=== PATIENT | female | born 1955 | race Caucasian/White ===

== ENCOUNTER 2017-08-14 10:25 | Outpatient (CLI) | payer MEDICAID ==
--- NOTE | 2017-08-14 13:03 | XRAY Report ---
TWO VIEW CHEST: 08/14/2017 CLINICAL INDICATION: Cough. COMPARISON: 06/27/2013. FINDINGS: Frontal and lateral views of the chest demonstrate a normal cardiac silhouette. The lungs are clear. No effusion or pneumothorax is present. IMPRESSION: NORMAL CHEST. TD: 08/14/2017 13:02
== END 2017-08-14 10:26 | disposition home or self-care (01) ==
LOC: DI.S 10:25
PROVIDERS: ATTEND Nurse Practitioner Family
DX: R05 Cough (principal)
CPT/HCPCS: 71046

== ENCOUNTER 2018-08-27 09:33 | Outpatient (CLI) | payer MEDICAID ==
--- NOTE | 2018-08-27 14:03 | XRAY Report ---
Reason: RIB PAIN,RIGHT SIDED,CHEST WALL PAIN Procedure Date: 08/27/2018 Accession Number: [id number] / [id number] Procedure: XR - Ribs w/PA Chest RT CPT Code: FULL RESULT: EXAM: RIGHT RIB RADIOGRAPHY EXAM DATE: 08/27/2018 10:06 AM. CLINICAL HISTORY: Patient fell 1 week ago. Anterior right chest wall pain. COMPARISON: CHEST 2 VIEW 08/14/2017 10:54 AM. TECHNIQUE: 1 view of the chest and 2 views of the ribs. FINDINGS: Bones: Normal. No fracture or bone lesion. Lungs: No focal opacities. No pneumothorax. No pleural effusions. Mediastinum: Heart and mediastinal contours are unremarkable. Other: None. IMPRESSION: No definite displaced rib fracture is detected. RADIA
== END 2018-08-27 09:34 | disposition home or self-care (01) ==
LOC: DI 09:33
PROVIDERS: ATTEND Physician Assistant Medical
DX: R07.81 Pleurodynia (principal); R07.89 Other chest pain

== ENCOUNTER 2019-01-02 10:49 | Outpatient (CLI) | payer MEDICAID ==
--- NOTE | 2019-01-03 09:35 | XRAY Report ---
Reason: PAIN IN RIGHT ANKLE JOINTS OF RIGHT FOOT Procedure Date: 01/02/2019 Accession Number: [id number] / [id number] Procedure: XRS - Ankle 3 View RT CPT Code: FULL RESULT: EXAM: RIGHT ANKLE RADIOGRAPHY EXAM DATE: 01/02/2019 10:58 AM. CLINICAL HISTORY: PAIN IN RIGHT ANKLE JOINTS OF RIGHT FOOT. COMPARISON: None. TECHNIQUE: 3 views. FINDINGS: Bones: Small plantar calcaneal spur. No fractures or bone lesions. Joints: Normal. No effusion. No subluxations. The ankle mortise is normally aligned. Soft Tissues: Normal. No soft tissue swelling. IMPRESSION: Normal ankle radiography apart from a small calcaneal spur. RADIA
== END 2019-01-02 10:50 | disposition home or self-care (01) ==
LOC: DI.S 10:49
PROVIDERS: ATTEND Physician Assistant Medical
DX: M77.31 Calcaneal spur, right foot (principal)

== ENCOUNTER 2019-01-21 11:25 | Outpatient (CLI) | payer MEDICAID ==
--- NOTE | 2019-01-21 15:48 | Mammography Report ---
Reason: SCREENING MAMMO Procedure Date: 01/21/2019 Accession Number: [id number] / [id number] Procedure: [facility]KA - Screening Mammo w/Michael CPT Code: FULL RESULT: EXAM: Screening Mammo w/Michael DATE: 01/21/2019 12:09 PM CLINICAL HISTORY: Screening TECHNIQUE: (B) - Bilateral CC and MLO views were obtained. COMPARISON: 03/18/2016, 01/06/2015 PARENCHYMAL PATTERN: (A) - The breasts demonstrate scattered fibroglandular densities bilaterally. FINDINGS: Stable long-standing focal breast asymmetry medial hemisphere left breast, middle one third, dating back to at least 2014. There are no suspicious masses, calcifications, or areas of distortion. IMPRESSION: Benign findings. BI-RADS category 2. RECOMMENDATION: (ANNUAL) - Recommend routine annual screening mammography. BI-RADS CATEGORY: (2) - Benign Findings. STANDARD QUALIFYING STATEMENTS: 1. This examination was not reviewed with the aid of Computer-Aided Detection (CAD). 2. A negative or benign imaging report should not preclude biopsy if clinically suspicious findings are present. 3. Dense breasts may obscure an underlying neoplasm. 4. This examination was reviewed with the aid of 3D breast imaging (tomosynthesis).
== END 2019-01-21 11:26 | disposition home or self-care (01) ==
LOC: DI 11:25
PROVIDERS: ATTEND Family Medicine
DX: Z12.31 Encounter for screening mammogram for malignant neoplasm of breast (principal)
CPT/HCPCS: 77063; 77067

== ENCOUNTER 2019-05-15 07:01 | Outpatient (CLI) | payer MEDICAID ==
[2019-05-15 10:11] LABS: BASOPHILS # (AUTO) 0.1 10^3/uL (0.0-0.1); BASOPHILS % (AUTO) 1.2 %; EOSINOPHILS # (AUTO) 0.2 10^3/uL (0.0-0.7); EOSINOPHILS % (AUTO) 3.4 %; HGB - HEMOGLOBIN 12.4 g/dL (12.0-16.0); LYMPHOCYTES # (AUTO) 2.3 10^3/uL (1.5-3.5); MEAN CORPUSCULAR HEMOGLOBIN 28.6 pg (27.0-31.0); MEAN CORPUSCULAR HGB CONC 31.7 g/dL (32.0-36.0); MEAN CORPUSCULAR VOLUME 90.1 fL (81.0-99.0); MEAN PLATELET VOLUME 11.3 fL (7.9-10.8); MONOCYTES # (AUTO) 0.4 10^3/uL (0.0-1.0); MONOCYTES % (AUTO) 6.2 %; NEUTROPHILS # (AUTO) 3.7 10^3/uL (1.5-6.6); NEUTROPHILS % (AUTO) 54.9 %; PLT - PLATELET COUNT 272 10^3/uL (130-450); RED BLOOD COUNT 4.34 10^6/uL (4.20-5.40); RED CELL DISTRIBUTION WIDTH 12.6 % (12.0-15.0); WHITE BLOOD COUNT 6.8 x10^3/uL (4.8-10.8)
[2019-05-15 10:22] LABS: ALBUMIN 3.7 g/dL (3.2-5.5); ALBUMIN/GLOBULIN RATIO 1.1 (1.0-2.2); BILIRUBIN,TOTAL 0.9 mg/dL (0.2-1.0); CALCIUM 8.7 mg/dL (8.5-10.3); CREATININE 0.6 mg/dL (0.4-1.0); MAGNESIUM 2.1 mg/dL (1.7-2.8); TOTAL PROTEIN 7.1 g/dL (6.7-8.2)
[2019-05-15 10:42] LABS: HB2 TOTAL 12.2 g/dL; HEMOGLOBIN A1C 0.54 g/dL; HEMOGLOBIN A1C % 6.2 % (4.6-6.2)
== END 2019-05-15 07:02 | disposition home or self-care (01) ==
LOC: LAB.S 07:01
PROVIDERS: ATTEND Physician Assistant Medical
DX: I49.9 Cardiac arrhythmia, unspecified (principal); Z13.228 Encounter for screening for other metabolic disorders; R73.01 Impaired fasting glucose; Z13.29 Encounter for screening for other suspected endocrine disorder; Z13.0 Encounter for screening for diseases of the blood and blood-forming organs and certain disorders involving the immune mechanism
CPT/HCPCS: 36415; 80053; 83036; 83735; 84443; 85025

== ENCOUNTER 2021-03-02 08:47 | Outpatient (CLI) | payer MEDICARE, MEDICAID ==
--- NOTE | 2021-03-03 09:04 | Mammography Report ---
BILATERAL DIGITAL SCREENING MAMMOGRAM 3D/2D WITH EXAGGERATED CC: 03/02/2021 CLINICAL: Family history of breast cancer. Comparison is made to exams dated: 01/21/2019 mammogram, 03/20/2016 mammogram, 01/06/2015 mammogram, a nd 09/12/2012 mammogram - [facility]. The tissue of both breasts is heterogeneously dense. This may lower the sensitivity of mammography. No significant masses, calcifications, or other findings are seen in either breast. There has been no significant interval change. IMPRESSION: NEGATIVE There is no mammographic evidence of malignancy. A 1 year screening mammogram is recommended. This exam was interpreted at Station ID: [id number]. NOTE: For mammograms, a report in lay terms will be sent to the patient. Approximately 15% of breast malignancies will not be visualized mammographically. In the management of a palpable breast mass, a negative mammogram must not discourage biopsy of a clinically suspicious lesion. Electronically Signed By: Larry neri/penrad:03/02/2021 10:07:08 ACR BI-RADS Category 1: Negative 3341F PARENCHYMAL PATTERN: (D) - The breast(s) demonstrate(s) heterogeneously dense fibroglandular ron sykes. BI-RADS CATEGORY: (1) - 1 RECOMMENDATION: (ANNUAL) - Recommend routine annual screening mammography. [id number] 1 year screening LATERALITY: (B)
== END 2021-03-02 08:48 | disposition home or self-care (01) ==
LOC: DI.S 08:47
DX: Z12.31 Encounter for screening mammogram for malignant neoplasm of breast (principal)

== ENCOUNTER 2021-07-22 09:44 | Outpatient (CLI) | payer MEDICARE, MEDICAID ==
--- NOTE | 2021-07-22 12:01 | XRAY Report ---
PROCEDURE: Cervical Spine w/Flex/Ext INDICATIONS: NUMBNESS, HAND TECHNIQUE: 7 views of the cervical spine were acquired including flexion and extension and oblique. COMPARISON: None. FINDINGS: Bones: No fractures or dislocations to the T1 level. No suspicious bony lesions. There is normal r daniel of motion between flexion and extension, with preserved normal bony alignment. Severe C5-C6 and C6-7 C7 degenerative disc changes. Mild C7-T1 degenerative disc changes. Moderate facet arthropathy n oted throughout the cervical spine. Moderate right C3-C4 and C4-C5 neural foraminal narrowing. Mild r ight C5-C6 neural foraminal narrowing. Moderate left C6-7 C7 neural foraminal narrowing. Soft tissues: Prevertebral soft tissues are normal in thickness. IMPRESSION: 1. Multilevel degenerative disc disease. 2. Multilevel facet arthropathy. 3. No fracture. No acute osseous lesion. If there is continued clinical concern for pathology, then M RI should be considered for further evaluation. Reviewed by: Chey Abdi MD, PhD on 07/22/2021 11:59 AM PDT Approved by: Chey Abdi MD, PhD on 07/22/2021 11:59 AM PDT Station ID: [id number]
== END 2021-07-22 09:45 | disposition home or self-care (01) ==
LOC: DI.S 09:44
PROVIDERS: ATTEND Registered Nurse
DX: R20.0 Anesthesia of skin (principal); M47.812 Spondylosis without myelopathy or radiculopathy, cervical region; M50.322 Other cervical disc degeneration at C5-C6 level; M48.02 Spinal stenosis, cervical region

== ENCOUNTER 2021-08-03 14:28 | Outpatient (CLI) | payer MEDICARE, MEDICAID | END 2021-08-03 14:29 | disposition short-term general hospital (02) | LOC: EMS 14:28 | DX: K62.5 Hemorrhage of anus and rectum (principal); R10.31 Right lower quadrant pain; R10.32 Left lower quadrant pain | CPT/HCPCS: A0425; A0429 ==

== ENCOUNTER 2021-08-18 10:49 | Outpatient (CLI) | payer MEDICARE, MEDICAID ==
--- NOTE | 2021-08-18 16:33 | MRI Report ---
PROCEDURE: Cervical Spine W/O INDICATIONS: ARTHROPATHY OF CERVICAL SPINE FACET, CERVICALGIA TECHNIQUE: Noncontrast sagittal T1 spin echo and T2 fast spin echo, sagittal STIR, foraminal oblique sagittal T2 fast spin echo, and axial gradient echo or T2 fast spin echo through the cervical spine. COMPARISON: None. FINDINGS: Straightening and reversal of usual cervical lordosis. No suspicious focal marrow signal abnormality or bone marrow edema. Body heights are maintained. Normal morphology and signal intensity of the cerv ical cord. There is no syrinx. Regional prevertebral and paraspinous soft tissues are within normal l imits. C2-C3: No spinal canal or neural foraminal stenosis. C3-C4: Severe neural foraminal narrowing on the right due to facet and uncovertebral hypertrophy. M ild neural foraminal narrowing on the left due to uncovertebral spurring. No spinal canal stenosis. C4-C5: Severe neural foraminal stenosis on the right and and moderate neural foraminal stenosis on t he left, due to a combination of facet and uncovertebral hypertrophy. Mild spinal canal stenosis due to posterior disc-osteophyte complex. C5-C6: Moderate spinal canal stenosis due to posterior disc-osteophyte complex and severe bilateral neural foraminal stenosis due to facet and uncovertebral hypertrophy. C6-C7: Mild spinal canal stenosis due to posterior discussed by complex. Moderate to severe bilatera l neural foraminal stenosis due to facet hypertrophy. C7-T1: No spinal canal stenosis. Moderate and bilateral neural foraminal stenosis due to facet and u ncovertebral hypertrophy. IMPRESSION: Moderate spinal canal stenosis at C5-C6. Varying degrees of neural foraminal stenosis, severe at multiple levels as detailed above. Correlate for corresponding radicular symptoms. Reviewed by: Ramu Gutierrez MD on 08/18/2021 4:32 PM PDT Approved by: Ramu Gutierrez MD on 08/18/2021 4:32 PM PDT Station ID: [id number]
== END 2021-08-18 10:50 | disposition home or self-care (01) ==
LOC: DI 10:49
PROVIDERS: ATTEND Registered Nurse
DX: M47.812 Spondylosis without myelopathy or radiculopathy, cervical region (principal); M54.2 Cervicalgia; R20.2 Paresthesia of skin; M48.02 Spinal stenosis, cervical region

== ENCOUNTER 2022-01-18 22:18 | Outpatient (CLI) | payer MEDICARE, MEDICAID | END 2022-01-18 22:19 | disposition short-term general hospital (02) | LOC: EMS 22:18 | DX: S89.92XA Unspecified injury of left lower leg, initial encounter (principal); W10.8XXA Fall (on) (from) other stairs and steps, initial encounter; Y93.01 Activity, walking, marching and hiking; Y92.89 Other specified places as the place of occurrence of the external cause; Z59.00 Homelessness unspecified | CPT/HCPCS: A0425; A0427 ==

== ENCOUNTER 2023-01-03 06:51 | Outpatient (CLI) | payer MEDICARE, MEDICAID ==
[2023-01-03 14:47] LABS: BASOPHILS # (AUTO) 0.1 10^3/uL (0.0-0.1); BASOPHILS % (AUTO) 1.3 %; EOSINOPHILS # (AUTO) 0.2 10^3/uL (0.0-0.7); EOSINOPHILS % (AUTO) 2.9 %; HCT - HEMATOCRIT 39.8 % (37.0-47.0); HGB - HEMOGLOBIN 12.5 g/dL (12.0-16.0); LYMPHOCYTES # (AUTO) 2.2 10^3/uL (1.5-3.5); LYMPHOCYTES % (AUTO) 39.1 %; MEAN CORPUSCULAR HEMOGLOBIN 29.1 pg (27.0-31.0); MEAN CORPUSCULAR HGB CONC 31.4 g/dL (32.0-36.0); MEAN CORPUSCULAR VOLUME 92.8 fL (81.0-99.0); MEAN PLATELET VOLUME 10.9 fL (7.9-10.8); MONOCYTES # (AUTO) 0.4 10^3/uL (0.0-1.0); NEUTROPHILS # (AUTO) 2.8 10^3/uL (1.5-6.6); NEUTROPHILS % (AUTO) 49.5 %; PLT - PLATELET COUNT 277 10^3/uL (130-450); RED BLOOD COUNT 4.29 10^6/uL (4.20-5.40); WHITE BLOOD COUNT 5.6 x10^3/uL (4.8-10.8)
[2023-01-03 15:42] LABS: ALBUMIN/GLOBULIN RATIO 1.3 (1.0-2.2); ALKALINE PHOSPHATASE 58 IU/L (42-121); ALT ALANINE AMINOTRANSFERASE 15 IU/L (10-60); AST ASPARTATE AMINOTRANSFERASE 17 IU/L (10-42); BILIRUBIN,TOTAL 0.6 mg/dL (0.2-1.0); BUN - BLOOD UREA NITROGEN 11 mg/dL (6-20); CALCIUM 9.5 mg/dL (8.5-10.3); CARBON DIOXIDE - CO2 30 mmol/L (21-32); CHLORIDE 107 mmol/L (101-111); CHOL/HDL RATIO 3.4 (<4.4); CHOLESTEROL 220 mg/dL; CREATININE 0.7 mg/dL (0.6-1.3); CRP - C-REACTIVE PROTEIN 0.5 mg/dL (<0.5); GFR - MDRD 83 (>89); GLUCOSE 109 mg/dL (74-104); HDL CHOLESTEROL 64 mg/dL; LDL CHOLESTEROL,CALCULATED 129 mg/dL; POTASSIUM 4.4 mmol/L (3.5-4.5); SODIUM 141 mmol/L (135-145); TRIGLYCERIDES 133 mg/dL (48-352); VLDL CHOLESTEROL 27 mg/dL
[2023-01-03 15:53] LABS: THYROID STIMULATING HORMONE 3.05 uIU/mL (0.34-5.60)
== END 2023-01-03 06:52 | disposition home or self-care (01) ==
LOC: LAB.S 06:51
PROVIDERS: ATTEND Registered Nurse
DX: R53.82 Chronic fatigue, unspecified (principal); Z13.220 Encounter for screening for lipoid disorders; Z13.228 Encounter for screening for other metabolic disorders; Z13.29 Encounter for screening for other suspected endocrine disorder; Z13.0 Encounter for screening for diseases of the blood and blood-forming organs and certain disorders involving the immune mechanism
CPT/HCPCS: 36415; 80053; 80061; 83090; 83721; 84443; 85025; 86140